=== PATIENT | male | born 1960 | race Caucasian/White ===

== ENCOUNTER 2016-05-16 12:11 | Emergency (ER) | payer OTHER ==
[2016-05-16 12:31] VITALS: BP 176/98
[2016-05-16] MEDS ORDERED: Tetan/Diph/Pertus SYR(Tdap)* 0.5 ML SYR(BOOSTRIX) use SYR IM ONE (12:46)
--- NOTE | 2016-05-16 13:27 | RAD ---
Indication: Finger injury. 3 views of the fourth finger demonstrates no fracture. No other bone or joint abnormalities identified. IMPRESSION: No fracture of the finger is noted.
[2016-05-16] MEDS ORDERED: Amoxicillin/Clavulanate TAB* 875 MG PO ONE (13:40)
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
== END 2016-05-16 14:09 | disposition home or self-care (01) ==
LOC: UCEAST 12:11
DX: S61.215A Laceration without foreign body of left ring finger without damage to nail, initial encounter (principal); W54.0XXA Bitten by dog, initial encounter; Y92.9 Unspecified place or not applicable; Z87.891 Personal history of nicotine dependence
CPT/HCPCS: 73140; 90471; 90715; 99212; A9270-GY; G0463

== ENCOUNTER 2019-04-22 08:14 | Emergency (ER) | payer OTHER ==
[2019-04-22 08:41] VITALS: BP 137/66
[2019-04-22] MEDS ORDERED: NS 0.9% 500 ML* 500 ML IV ONE (08:42)
[2019-04-22] MEDS ORDERED: Aspirin 81 mg CHEW TAB* 81 MG TAB.CHEW PO ONE (08:43)
--- NOTE | 2019-04-22 08:45 | UC ---
UC General HPI - History of Current Complaint Stated Complaint: DIZZY Hx Obtained From: Patient, Family/Supervisor [employer] Pain Intensity: 0 - Allergy/Home Medications Allergies/Adverse Reactions: Allergies Allergy/AdvReac Type Severity Reaction Status Date / Time No Known Allergies Allergy Verified 04/22/19 08:41 Home Medications: Home Medications Amlodipine Besylate [Norvasc] 10 mg PO DAILY 04/22/19 [History Confirmed ] Irbesartan/Hydrochlorothiazide [Irbesartan/Hydrochlorothi 150-12.5 mg] 1 tab PO 04/22/19 [History] traZODone TAB* [Desyrel TAB*] 75 mg PO BEDTIME 04/22/19 [History Confirmed 04/22] PMH/Surg Hx/FS Hx/Imm Hx - Surgical History Surgical History: Yes Surgery Procedure, Year, and Place: varicose on testes at age 10. - Family History Known Family History: Positive: None - Social History Alcohol Use: Rare Substance Use Type: None Smoking Status (MU): Former Smoker - Immunization History Most Recent Influenza Vaccination: "up to date" Most Recent Tetanus Shot: "up to date" Physical Exam Vital Signs: Initial Vital Signs Temp 98.1 F 04/22/19 08:35 Pulse 88 04/22/19 08:35 Resp 18 04/22/19 08:35 BP 137/66 04/22/19 08:35 Pulse Ox 96 04/22/19 08:35 Course/Dx - Course Course Of Treatment: EKG SR at 79 bpm + LBBB. LBBB is new c/w ekg 08/2018. Discharge ED - Sign-Out/Discharge Documenting (check all that apply): Patient Departure All imaging exams completed and their final reports reviewed: No Studies - Discharge Plan Condition: Guarded Disposition: ADMITTED TO [facility] Patient Education Materials: Lightheadedness (ED) Referrals: No Primary Care Phys,NOPCP [Medical Doctor] - - Billing Disposition and Condition Condition: GUARDED Disposition: Admitted to [facility]
== END 2019-04-22 09:13 | disposition short-term general hospital (02) ==
LOC: UCEAST 08:14
DX: R42 Dizziness and giddiness (principal); Z87.891 Personal history of nicotine dependence
CPT/HCPCS: 93005; 96360; 99213; A9270-GY; G0463

== ENCOUNTER 2019-04-22 09:26 | Emergency (ER) | payer OTHER ==
--- OUTSIDE RECORDS SUMMARY | 2019-04-22 09:36 | XMS REPORT | Summary of Care ---
:1960 Author Organization [facility] Address [address] [place] [address] Care Team Providers Name Role Phone Messi Xiao Primary Care Provider Reason for Visit Reason Comments Results labs Encounter Details Date Type Department Care Team Description 04/08/2019 Office Visit [facility] Shonda Bueno, Diabetes mellitus without complication (HCC) (Primary Dx); Practice [employer] Essential hypertension, benign [address] [place] [address] [place] [address] [phone] Allergies No Known Allergiesdocumented as of this encounter (statuses as of 04/08/2019) Medications Medication Sig Dispensed Refills Start End Date Status Date Blood Glucose 1 Each by Does 1 Device 0 Active Monitor Software not apply route 7 Does not apply DIRECTED. DeviceIndications: uncontrolled Diabetes mellitus non-insulin without dependent complication (HCC) diabetes. Brand: insurance preferred Glucose Blood In 100 Strips by In 100 Strip 0 Active Vitro Vitro route 7 StripIndications: DAILY. Diabetes mellitus uncontrolled without non-insulin complication (HCC) dependent diabetes cyclobenzaprine Take 1 Tab by 50 Tab 2 Active (FLEXERIL) 10 MG mouth THREE 9 Oral Tab TIMES DAILY NEEDED (lower back pain). amLodipine Take 1 Tab by 90 Tab 3 Active (NORVASC) 10 MG mouth DAILY. 9 Oral TabIndications: Essential hypertension, benign trazodone (DESYREL) Take 0.5-1 Tabs 90 Tab 3 Active 150 MG Oral Tab by mouth EVERY 9 BEDTIME. Irbesartan-hydroCHL Take 1 Tab by 90 Tab 3 Active OROthiazide mouth DAILY. 9 150-12.5 MG Oral TabIndications: Essential hypertension, benign Lancets Does not 1 Device by Does 100 Each 5 Active apply not apply route 9 MiscIndications: DAILY. DX: Diabetes mellitus E11.9 Brand: without insurance complication (HCC) preferred Lancets Does not by Does not 100 Each 5 04/08/20 Discontinued apply apply route 7 (Reorder) MiscIndications: DIRECTED. Diabetes mellitus Insulin without dependent complication (HCC) diabetes. Brand: insurance preferred documented as of this encounter (statuses as of 04/08/2019) Active Problems Problem Noted Date Diabetes mellitus without complication 05/31/2016 Chronic insomnia 04/30/2016 BMI 40.0-44.9, adult 10/04/2011 Overview: sustained wt reduction with portion control and sustained routine exercise. Work on portion control and set short term realistic goals of 1# reduction / week up to 14 weeks at a time. Essential hypertension, benign 02/14/2011 Knee pain 02/03/2009 BACK PAIN 10/27/2007 documented as of this encounter (statuses as of 04/08/2019) Resolved Problems Problem Noted Date Resolved Date Hip pain 02/03/2009 04/30/2016 Obesity (BMI 30-39.9) 07/06/2008 10/04/2011 Overview: 03/03/2008, BMI: 39.87 Replaced inactive diagnosis Hypertension 10/27/2007 02/14/2011 documented as of this encounter (statuses as of 04/08/2019) Social History Tobacco Use Types Packs/Day Years Used Date Former Smoker Cigarettes 1 20 Smokeless Tobacco: Never Used Comments: quit 1988 Alcohol Use Drinks/Week oz/Week Comments Yes seldom Sex Assigned at Date Recorded Not on file Job Start Date Occupation Industry Not on file Not on file Not on file Travel History Travel Start Travel End No recent travel history available. documented as of this encounter Last Filed Vital Signs Vital Sign Reading Time Taken Comments Blood Pressure 133/61 04/08/2019 6:57 AM EST Pulse 82 04/08/2019 6:57 AM EST Temperature - - Respiratory Rate - - Oxygen Saturation 96% 04/08/2019 6:57 AM EST Inhaled Oxygen Concentration - - Weight 118.8 kg (262 lb) 04/08/2019 6:57 AM EST Height 172.7 cm (5' 8") 04/08/2019 6:57 AM EST Body Mass Index 39.84 04/08/2019 6:57 AM EST documented in this encounter Patient Instructions Patient InstructionsShonda Bueno FNP - 04/08/2019 7:00 AM ESTSchedule fasting lab work for 3 Months in Mid June, then office visit end of June. documented in this encounter Progress Notes Shonda Bueno FNP - 04/08/2019 7:00 AM EST PATIENT: Renato Donnelly : 1960 DATE OF SERVICE: 04/08/2019 Chief Complaint Patient presents with Results labs SUBJECTIVE: Renato Donnelly is a 59-y.o. male who is here for follow up of diabetes and hypertension. He is feeling well and no new concerns. The patient is taking hypertensive medications compliantly without side effects. Denies chest pain,dyspnea, edema, or TIA's. No dizziness or palpitations. He is managing diabetes with diet and has lost 10# since last visit. He has yearly eye exam. Patient denies foot pain or swelling, foot lesions, numbness, burning, injuries or infections. Home fingersticks in low 100's. Patient Active Problem List Diagnosis Date Noted Diabetes mellitus without complication ([facility]) 05/31/2016 Chronic insomnia 04/30/2016 BMI 40.0-44.9, adult ([facility]) 10/04/2011 sustained wt reduction with portion control and sustained routine exercise. Work on portion control and set short term realistic goals of 1# reduction / week up to 14 weeks at a time. Essential hypertension, benign 02/14/2011 Knee pain 02/03/2009 BACK PAIN 10/27/2007 Current Outpatient Medications Medication Sig amLodipine (NORVASC) 10 MG Oral Tab Take 1 Tab by mouth DAILY. Blood Glucose Monitor Software Does not apply Device 1 Each by Does not apply route DIRECTED. uncontrolled non-insulin dependent diabetes. Brand: insurance preferred cyclobenzaprine (FLEXERIL) 10 MG Oral Tab Take 1 Tab by mouth THREE TIMES DAILY NEEDED (lower back pain). Glucose Blood In Vitro Strip 100 Strips by In Vitro route DAILY. uncontrolled non-insulin dependent diabetes Irbesartan-hydroCHLOROthiazide 150-12.5 MG Oral Tab Take 1 Tab by mouth DAILY. Lancets Does not apply Misc 1 Device by Does not apply route DAILY. DX: E11.9 Brand: insurance preferred trazodone (DESYREL) 150 MG Oral Tab Take 0.5-1 Tabs by mouth EVERY BEDTIME. No current facility-administered medications for this visit. OBJECTIVE: BP 133/61 | Pulse 82 | Ht 5' 8" (1.727 m) | Wt 262 lb (118.8 kg) | SpO2 96% | BMI 39.84 kg/m he is alert and in no distress.The neck is supple and free of adenopathy or masses, thethyroid is normal without enlargement or nodules. No carotid bruit. Chest is clear, no wheezing or rales. Normal symmetric air entry throughout both lung webster. Heart RRR. Foot exam - both sides normal; no swelling, tenderness or skin or vascular lesions. Color and temperature is normal. Sensation isintact. Peripheral pulses are palpable. Toenails are normal. BP Readings from Last 3 Encounters: 04/08/19 133/61 01/07/19 148/82 09/29/18 160/78 Wt Readings from Last 3 Encounters: 04/08/19 262 lb (118.8 kg) 01/07/19 272 lb (123.4 kg) 09/29/18 269 lb (122 kg) Lab Results Component Value Date GLYCO 7.0 (H) 04/01/2019 GLYCO 7.0 (H) 12/31/2018 GLYCO 6.5 (H) 09/26/2018 Lab Results Component Value Date NA 141 04/01/2019 K 4.3 04/01/2019 CL 104 04/01/2019 CO2 27 04/01/2019 GLUCOSE 146 (H) 04/01/2019 BUN 13 04/01/2019 CREATININE 0.6 (L) 04/01/2019 CALCIUM 9.7 04/01/2019 TP 7.5 04/01/2019 ALBUMIN 4.3 04/01/2019 AST 30 04/01/2019 ALT 35 04/01/2019 ALK 91 04/01/2019 TBILI 0.5 04/01/2019 EGFR >60 04/01/2019 Lab Results Component Value Date CHOL 132 12/31/2018 TRIG 99 12/31/2018 HDL 45 12/31/2018 LDL 67 12/31/2018 LDLHDLRATIO 1.5 12/31/2018 CHOLHDLRATIO 2.9 12/31/2018 ASSESSMENT: ICD-9-CM ICD-10-CM 1. Diabetes mellitus without complication (HCC) 250.00 E11.9 Lancets Does not apply [facility] COMPREHENSIVE METABOLIC PANEL GLYCOHEMOGLOBIN A1C 2. Essential hypertension, benign 401.1 I10 He refuses pneumonia vaccine. Patient Instructions Schedule fasting lab work for 3 Months in Mid June, then office visit end of June. Author: CANDIDO Rios 04/08/2019 07:21 documented in this encounter Plan of Treatment Date Type Specialty Care Team Description 07/06/2019 Lab Internal Medicine 07/13/2019 Office Visit [facility] Shonda Bueno FNP [address] [place] [address] [phone] Name Type Priority Associated Diagnoses Order Schedule COMPREHENSIVE METABOLIC Lab Routine Diabetes mellitus Expected: 04/08/2019 PANEL without complication (Approximate), (HCC) Expires: 10/05/2019 GLYCOHEMOGLOBIN A1C Lab Routine Diabetes mellitus Expected: 04/08/2019 without complication (Approximate), (HCC) Expires: 10/05/2019 Health Maintenance Due Date Last Done Comments PNEUMOCOCCAL 0-64 YRS (1 of 1964 1 - PPSV23) DTaP/Tdap/Td Vaccines (1 - 1969 Tdap) ZOSTER IMMUNIZATION SERIES 2008 (1 of 2) HEMOGLOBIN A1C 07/01/2019 04/01/2019, 12/31/2018, 09/26/2018, Additional history exists LIPID DISORDER SCREENING 01/01/2020 12/31/2018, 05/21/2018, 01/20/2018, Additional history exists Diabetic Eye Exam 01/15/2020 01/14/2018, 09/04/2016 DEPRESSION SCREENING 04/08/2020 04/08/2019 FOOT EXAM 04/08/2020 04/08/2019, 01/20/2018, 01/20/2018, Additional history exists Colonoscopy 07/30/2027 07/29/2017, 07/18/2008 HEPATITIS A IMMUNIZATION Aged Out No longer eligible SERIES based on patient's age to complete this topic HPV IMMUNIZATION SERIES Aged Out No longer eligible based on patient's age to complete this topic MENINGOCOCCAL VACCINE IMM Aged Out No longer eligible based on patient's age to complete this topic documented as of this encounter Goals Goal Patient Goal Associated Recent Patient-Stated? Author Type Problems Progress Blood Pressure Blood Pressure Essential 133/61 No Ilene, < 140/90 hypertension, (04/08/2019 Rebecca, benign 6:57 AM EST) Note: Hypertension Care Plan Based on the patient's clinical history and according to JNC 8 guidelines target blood pressure goal is less than 150/90. Based on the patient's last blood pressure of BP: 132/80 mmHg the patient is at at goal. As your provider, it is important that I advise you regarding: your current medications and help you with any challenges you may face taking your medications as directed (ex. instructions, cost, side effects, and interactions). Important lifestyle changes: exercise, weight reduction and diet your clinical goals and how you can achieve success: weight reduction, exercise plan and diet improvements medication management: adjusted medications as appropriate patient education/self-management tools provided: Current self-management tools adequate To successfully manage my Hypertension I will: monitor my blood pressure daily, understanding that my goal is less than 140/ 90 per my healthcare provider's recommendation. I will schedule an appointment with my provider if consistent abnormal readings greater than 160/100. take medications every day as prescribed by my healthcare provider and if unable to take them I will discuss with my provider. monitor for symptoms of chest pain, chest tightness/pressure, irregular heartbeat, persistent dizziness, radiating arm pain, and neck or jaw pain. If any of these symptoms are noticed I will seek medical attention immediately by calling 911 exercise/walk 30 minutes 5 day(s) per week. If I experience chest pain, chest tightness, or shortness of breath, I will seek medical attention immediately. follow a diet rich in fruits, vegetables, and low-fat dairy products with reduced content of saturated & total fat. I will reduce my sodium intake daily. An example is the DASH diet. To obtain more information please refer to the DASH Eating Plan listed in Educational Resources. record my blood pressure results. [employer] is safe and secure way for you to do this in your medical record online. try to obtain an ideal body weight. My recent weight was Weight: 271 lb ( 122.925 kg). My weight loss goal for my next office visit is 10# reduction. limit alcohol consumption. For men two drinks per day and women one drink per day. if currently smoking, will discuss how to quit smoking with my healthcare provider and work towards quitting. Educational Resources: National Heart, Lung, & Blood Hansen http://nhlbi.nih.gov/hbp/index.html The DASH Diet Eating Plan http://www.nhlbi.nih.gov/health/health-topics/ topics/dash/ Academy of Nutrition & DIetetics http://eatright.org National Smoking Cessation Site http://smokefree.gov Blood Pressure < Blood Pressure 133/61 (04/08/2019 6:57 No Messi Xiao, 140/90 AM EST) Note: This is an individualized treatment (blood pressure) goal for Renato Edwards Andrzej: Displayed above (on the left) is your goal for blood pressure control. Your most recent blood pressure is also shown above, on the right. You should try to achieve blood pressures that are lower than your goal listed above (on the left). Glycohemoglobin A1c < 7.0 Diabetes 7.0 (04/01/2019 6:34 No Shonda Bueno FNP AM EST) Note: This is an individualized treatment (diabetes control, HgbA1C) goal for Renato Edwards Andrzej: Displayed above is your progress towards your HgbA1C goal. Your goal is shown above (on the left); your most recent HgbA1C is shown on the right. Note that lower numbers are better. Weight loss vs. 18 mo Lifestyle 10 (04/08/2019 6:57 AM Messi Tan MD max (lbs) >= 10 EST) Note: This is an individualized lifestyle goal for Renato Edwards [place]: Your body mass index (BMI) is more than 30. You should lose weight. A reasonable starting goal is to lose 10 pounds. Displayed above is how many pounds you have lost thus far towards your 10 pound weight loss goal. Keep immunizations current Lifestyle Shonda Casarez FNP Note: This is an individualized lifestyle goal for Renato Donnelly: Please be sure to keep up-to-date on recommended immunizations. For example, this would include a yearly influenza vaccine. Immunization status can be seen by looking at the Health Maintenance sections of your [employer], Plan of Care, and any After Visit Summaries. Take all prescribed medications as Self-management Messi Tan MD directed Note: This is an individualized self-management goal for Renato Donnelly: Please take all prescribed medications as directed. 1. Do not skip doses. If you cannot afford your medications, talk with your doctor. 2. Use a pill reminder system such as a pill box if needed. Your pharmacist can help you with this. 3. Contact your Pharmacy 5 days before your medication runs out. If you cannot take your medications for any reasons, talk with your doctor. 4. Please bring all of your medication bottles and inhalers (or a list of all your medications/inhalers) with you to every visit. Potential barriers to meeting all of your care plan goals will continue to be addressed on an ongoing basis. documented as of this encounter Procedures Procedure Name Priority Date/Time Associated Diagnosis Comments DIABETES FOOT EXAM Routine 04/08/2019 documented in this encounter Results DIABETES FOOT EXAM (04/08/2019) FOOT EXAM done [facility] Performing Organization Address [facility] [address] [place] [phone] documented in this encounter Visit Diagnoses Diagnosis Diabetes mellitus without complication (HCC) Type II or unspecified type diabetes mellitus without mention of complication, not stated as uncontrolled Essential hypertension, benign documented in this encounter documented as of this encounter Advance Directives Type Date Recorded Patient Executive Vp Explanation Advance Directives 08/05/2017 1:07 PM Health Care Proxy
[2019-04-22] MEDS: Meclizine TAB* 12.5 MG PO ONE (09:51)
[2019-04-22] MEDS: NS 0.9% 1000 ML** 1,000 ML IV ONE (09:52)
[2019-04-22 10:01] LABS: ABS Lymphocytes 0.6 10^3/ul (1.0-4.8); ABS Monocytes 0.3 10^3/ul (0-0.8); ABS Neutrophils 9.1 10^3/ul (1.5-7.7); Eosinophil % 0.1 %; Hematocrit 41 % (42-52); Hemoglobin 13.9 g/dL (14.0-18.0); Lymphocyte % 6.1 %; Mean Corpuscular HGB Conc 34 g/dL (31-36); Mean Corpuscular Hemoglobin 31 pg (27-31); Mean Corpuscular Volume 91 fL (80-94); Nucleated Red Blood Cells % 0.1; Platelet Count 235 10^3/uL (150-450); Red Blood Count 4.53 10^6 /uL (4.18-5.48); Red Cell Distribution Width 14 % (10-15)
--- NOTE | 2019-04-22 10:05 | ED ---
Dizziness - HPI Summary HPI Summary: Pt is a 59 y/o M presenting to the ED brought in by EMS with a chief complaint of dizziness initially onset around 0330 this date when he switched positions during sleep, from his L to R side. He describes it as room spinning. He notes his neck is sore, he feels off balance, and he experienced some chills and diaphoresis with the dizziness today. He denies ear ache, ear pressure, visual changes, nausea, vomiting, chest pain, SOB, abd pain, or hx of [place]. - History Of Current Complaint Chief Complaint: EDDizziness Stated Complaint: DIZZINESS PER EMS Time Seen by Provider: 04/22/19 09:32 Hx Obtained From: Patient Onset/Duration: Still Present, Suddenly Timing: Hours Severity Initially: Moderate Severity Currently: Moderate Character: Room Spinning, Dizzy Aggravating Factor(s): Position Change Alleviating Factor(s): Nothing Associated Signs And Symptoms: Positive: Diaphoresis, Unsteady Gait, Chills. Negative: Nausea, Vomiting, Chest Pain, SOB, Visual Changes - Allergies/Home Medications Allergies/Adverse Reactions: Allergies Allergy/AdvReac Type Severity Reaction Status Date / Time No Known Allergies Allergy Verified 04/22/19 09:36 Home Medications: Home Medications Cyclobenzaprine TAB* [Flexeril 10 MG TAB*] 10 mg PO BID PRN 04/22/19 [History Confirmed 04/22/19] PMH/Surg Hx/FS Hx/Imm Hx Previously Healthy: Yes Endocrine/Hematology History: Denies: Hx Bone Marrow Disease, Hx Diabetes, Hx Thyroid Disease, Hx Anemia Cardiovascular History: Reports: Hx Hypertension Denies: Hx Angina, Hx Cardiomegaly, Hx Congestive Heart Failure, Hx Coronary Artery Disease, Hx Pacemaker/ICD, Hx Peripheral Vascular Disease, Hx Rheumatic Fever, Hx Valvular Heart Disease Respiratory History: Denies: Hx Asthma, Hx Chronic Obstructive Pulmonary Disease (COPD), Hx Pulmonary Edema, Hx Pulmonary Embolism GI History: Denies: Hx Ulcer, Other GI Disorders History: Reports: Hx Kidney Stones - LEFT5 SIDE 12-22-12 Denies: Other Problems/Disorders Sensory History: Reports: Hx Contacts or Glasses - glasses Denies: Hx Hearing Aid Opthamlomology History: Reports: Hx Contacts or Glasses - glasses Neurological History: Denies: Hx Headaches, Hx Migraine, Hx Nerve Disease, Hx Seizures Psychiatric History: Reports: Hx Depression Denies: Hx Anxiety - Surgical History Surgery Procedure, Year, and Place: varicose on testes at age 10. Hx Anesthesia Reactions: No Infectious Disease History: No Infectious Disease History: Denies: Hx Hepatitis, Hx Human Immunodeficiency Virus (HIV), Traveled Outside the [place] in Last 30 Days - Family History Known Family History: Negative: Cardiac Disease - Social History Alcohol Use: Rare Hx Substance Use: No Substance Use Type: Reports: None Hx Tobacco Use: Yes Smoking Status (MU): Former Smoker Review of Systems Positive: Chills, Skin Diaphoresis Eyes: Negative Negative: Ear Ache Negative: Chest Pain Negative: Shortness Of Breath Negative: Vomiting, Nausea Neurological: Other - dizziness All Other Systems Reviewed And Are Negative: Yes Physical Exam - Summary Physical Exam Summary: Constitutional: Well-developed, Well-nourished, Alert. (-) Distressed Skin: Warm, Dry HENT: Normocephalic; Atraumatic Eyes: Conjunctiva normal. No nystagmus. Neck: Musculoskeletal ROM normal neck. (-) JVD, (-) Stridor, (-) Tracheal deviation Cardio: Rhythm regular, rate normal, Heart sounds normal; Intact distal pulses; The pedal pulses are 2+ and symmetric. Radial pulses are 2+ and symmetric. (-) Murmur Pulmonary/Chest wall: Effort normal. (-) Respiratory distress, (-) Wheezes, (-) Rales Abd: Soft, (-) tenderness, (-) Distension, (-) Guarding, (-) Rebound Musculoskeletal: (-) Edema Lymph: (-) Cervical adenopathy Neuro: Alert, Oriented x3 Psych: Mood and affect Normal Triage Information Reviewed: Yes Vital Signs On Initial Exam: Initial Vitals Temp Pulse Resp BP Pulse Ox 98.8 F 86 13 158/82 98 04/22/19 09:30 04/22/19 09:30 04/22/19 09:30 04/22/19 09:30 04/22/19 09:30 Vital Signs Reviewed: Yes - Marquita Coma Scale Best Eye Response: 4 - Spontaneous Best Motor Response: 6 - Obeys Commands Best Verbal Response: 5 - Oriented Coma Scale Total: 15 Procedures - Sedation Patient Received Moderate/Deep Sedation with Procedure: No Diagnostics - Vital Signs Vital Signs Temp Pulse Resp BP Pulse Ox 04/22/19 09:44 88 21 96 04/22/19 09:31 88 21 94 04/22/19 09:30 98.8 F 86 13 158/82 98 - Laboratory Result Diagrams: 04/22/19 09:44 04/22/19 09:44 Lab Statement: Any lab studies that have been ordered have been reviewed, and results considered in the medical decision making process. - CT Brain CT CT Interpretation Completed By: Radiologist Summary of CT Findings: 1. NO EVIDENCE FOR ACUTE INTRACRANIAL ABNORMALITY. 2. ATHEROSCLEROTIC CHANGE IN THE VERTEBRAL ARTERIES. ED physician has reviewed this report. - EKG 946 Cardiac Rate: NL - 85bpm EKG Rhythm: Sinus Rhythm ST Segment: Normal Ectopy: None EKG Comparison: Other Summary of EKG Findings: EKG at 47 shows NSR at 85bpm with LBBB. Prior EKG dated 10/03/08 shows no LBBB. EKG reviewed and interpreted by Dr. Proctor. Dizzy Course/Dx - Course Course Of Treatment: Pt is a 59 y/o M presenting to the ED with a chief complaint of dizziness initially onset around 0330. He notes his neck is sore, he feels off balance, and he experienced some chills and diaphoresis with the dizziness today. He denies ear ache, ear pressure, visual changes, nausea, vomiting, chest pain, SOB, abd pain, or hx of [place]. Pt's physical exam is nml. Notably, no nystagmus. EKG at 0947 shows NSR at 85bpm with LBBB. Prior EKG dated 10/03/08 shows no LBBB. EKG reviewed and interpreted by Dr. Proctor. Given pts sudden onset of sx while he was changing position in bed, sx notably exacerbated by movement, most consistent with BPPV. Brain CT shows: 1. NO EVIDENCE FOR ACUTE INTRACRANIAL ABNORMALITY. 2. ATHEROSCLEROTIC CHANGE IN THE VERTEBRAL ARTERIES. Bloodwork obtained and within normal limits with exception of Hgb 13.9, Hct 41, absolute neuts 9.1, absolute lymphs 0.6, sodium 134, creatinine 0.62, BUN/creatinine 27.4, glucose 227, alk phos 106. During ED course, patient received fluids, reglan 10 mg IV, antivert 25 mg PO, Benadryl 25 mg IV, valium 5 mg PO. Patient was discharged to home with prescription for meclizine. He will follow up with his PCP in 1-2 days. - Diagnoses Provider Diagnoses: BPPV (benign paroxysmal positional vertigo) Discharge ED - Sign-Out/Discharge Documenting (check all that apply): Patient Departure - discharge - Discharge Plan Condition: Stable Disposition: HOME Referrals: Shonda Bueno NP [Primary Care Provider] - - Attestation Statements Document Initiated by Scribe: Yes Documenting Scribe: Reena Berkowitz Provider For Whom Scribe is Documenting (Include Credential): Osmani Proctor DO Scribe Attestation: IReena and Harpreet Berkowitz, scribed for Osmani Proctor DO on 04/22/19 at 1333. Status of Scribe Document: Ready
[2019-04-22 10:15] LABS: Albumin 4.4 g/dL (3.2-5.2); Albumin/Globulin Ratio 1.5 (1-3); BUN/Creatinine Ratio 27.4 (8-20); Calcium 9.3 mg/dL (8.6-10.3); EGFR African American 159.6 (>60); EGFR Non-African American 131.9 (>60); Potassium 3.5 mmol/L (3.5-5.0); Total Bilirubin 0.8 mg/dL (0.2-1.0); Total Protein 7.4 g/dL (6.4-8.9)
[2019-04-22] MEDS: Diazepam TAB(*) 5 MG PO ONE (11:45)
[2019-04-22] MEDS: diPHENhydraMINE IV* 50 MG/ML 1 ml VIAL (BENADRYL) IV ONE (11:46)
[2019-04-22] MEDS: NS 0.9% 500 ML* 500 ML IV ONE (11:48)
[2019-04-22] MEDS: Metoclopramide IV* 5 MG/ML 2 ML VIAL IV ONE (11:48)
[2019-04-22 13:52] VITALS: BP 129/63
== END 2019-04-22 13:51 | disposition home or self-care (01) ==
LOC: ED 09:26
DX: H81.10 Benign paroxysmal vertigo, unspecified ear (principal); I67.2 Cerebral atherosclerosis; I10 Essential (primary) hypertension; F32.9 Major depressive disorder, single episode, unspecified; Z87.891 Personal history of nicotine dependence
CPT/HCPCS: 36415; 70450; 80053; 84484; 85025; 93005; 96361; 96374; 96375; 99283; A9270-GY; J1200; J2765